=== PATIENT | female | born 1940 | race African-American/Black ===

== ENCOUNTER 2017-03-05 12:09 | Emergency (ER) | payer MEDICARE ==
[~2017-03-05] VITALS: Ht 170.2 cm; Wt 91.0 kg
[~2017-03-05 12:09] MED LIST: CALC1TAB12 PO; ESTR1TAB PO; HYDR25TA5 PO; MULTTAB67 PO
[2017-03-05 12:10] VITALS: BP 134/68; PULSE 103; RESP 17; TEMP 98.7; O2SAT 96
--- NOTE | 2017-03-05 15:37 | PD ---
HPI Chief Complaint: GI Complaint Time Seen by Provider: 15:17 Travel History International Travel<30 days: No Contact w/Intl Traveler<30days: No Traveled to known affect area: No History of Present Illness HPI 76-year-old female presents to the emergency department, sent by her primary care provider Dr. Joseph, with complaint of blood in her stool on and off for the past 2 months. Had a stool sample that was positive for blood that she provided on Wednesday and was called today. Reports upper abdominal pain that has been consistent and unchanged for 10 or more years. Denies fever, vomiting , dysuria, hematuria. Says her stool is soft but denies diarrhea. Denies anticoagulant therapy. Had colonoscopy and endoscopy in June and July 2016 which concluded gastritis and a lipoma in her colon. Says she had a CT scan her abdomen within the last year to year and half. History of appendectomy and hysterectomy. Allergies to aspirin. B[facility] Insulator is [facility] [place]. History of gastritis, lipoma in colon, and hypertension. Symptoms are mild in severity. Has no other medical complaints. No other modifying factors or associated signs and symptoms. PFSH Past Surgical History Hysterectomy: Yes Social History Tobacco Use: No Allergies-Medications (Allergen,Severity, Reaction): Coded Allergies: aspirin (Unverified Allergy, Mild, itching, 03/05/17) Reported Meds & Prescriptions Reported Meds & Active Scripts Active Calcium 500 +D (Calcium Carbonate-Cholecalciferol) 500-400 Mg-Unit Tab 1 Tab PO TID Hydrochlorothiazide 25 Mg Tab 25 Mg PO DAILY Estradiol 1 Mg Tab 1 Mg PO DAILY Reported Multiple Vitamin 1 Tab 1 Tab PO DAILY Review of Systems Except as stated in HPI: all other systems reviewed are Neg Physical Exam Narrative GENERAL: Well-nourished, well-developed female patient, in no acute distress; afebrile, nontoxic-appearing SKIN: Warm and dry. HEAD: Atraumatic. Normocephalic. EYES: Pupils equal and round. No scleral icterus. No injection or drainage. ENT: Mucosa pink and moist. Airway patent. NECK: Trachea midline. CARDIOVASCULAR: Regular rate and rhythm. No murmur appreciated. RESPIRATORY: No accessory muscle use. Clear to auscultation. Breath sounds equal bilaterally. GASTROINTESTINAL: Abdomen soft, tenderness on palpation to right upper and left upper quadrant is consistent with her abdominal pain for over 10 years, nondistended. Hepatic and splenic margins not palpable. Bowel sounds are active 4 quadrants. Nonrigid. No rebound tenderness. No guarding. BACK: No CVA tenderness. MUSCULOSKELETAL: No obvious deformities. No clubbing. No cyanosis. No edema. NEUROLOGICAL: Awake and alert. Oriented 3. No obvious cranial nerve deficits. Motor grossly within normal limits. Normal speech. PSYCHIATRIC: Appropriate mood and affect; insight and judgment normal. Data Data Last Documented VS Vital Signs Date Time Temp Pulse Resp B/P (MAP) Pulse Ox O2 Delivery O2 Flow Rate FiO2 03/05/17 15:49 99 Room Air 03/05/17 15:49 98.7 77 12 138/84 (102) Orders Orders Complete Blood Count With Diff (03/05/17 13:20) Comprehensive Metabolic Panel (03/05/17 13:20) Prothrombin Time / Inr (Pt) (03/05/17 13:20) Act Partial Throm Time (Ptt) (03/05/17 13:20) Ecg Monitoring (03/05/17 13:20) Oximetry (03/05/17 13:20) Oxygen Administration (03/05/17 13:20) Iv Access Insert/Monitor (03/05/17 13:20) Type And Screen (03/05/17 13:20) Lipase (03/05/17 15:40) Urinalysis - C+S If Indicated (03/05/17 15:40) Labs Laboratory Tests Test 03/05/17 15:50 03/05/17 17:10 White Blood Count 7.1 TH/MM3 Red Blood Count 4.55 MIL/MM3 Hemoglobin 13.5 GM/DL Hematocrit 39.4 % Mean Corpuscular Volume 86.6 FL Mean Corpuscular Hemoglobin 29.7 PG Mean Corpuscular Hemoglobin Concent 34.3 % Red Cell Distribution Width 12.8 % Platelet Count 313 TH/MM3 Mean Platelet Volume 7.5 FL Neutrophils (%) (Auto) 47.2 % Lymphocytes (%) (Auto) 42.0 % Monocytes (%) (Auto) 9.3 % Eosinophils (%) (Auto) 1.3 % Basophils (%) (Auto) 0.2 % Neutrophils # (Auto) 3.4 TH/MM3 Lymphocytes # (Auto) 3.0 TH/MM3 Monocytes # (Auto) 0.7 TH/MM3 Eosinophils # (Auto) 0.1 TH/MM3 Basophils # (Auto) 0.0 TH/MM3 CBC Comment DIFF FINAL Differential Comment Prothrombin Time 10.0 SEC Prothromb Time International Ratio 0.9 RATIO Activated Partial Thromboplast Time 26.4 SEC Blood Urea Nitrogen 18 MG/DL Creatinine 1.02 MG/DL Random Glucose 96 MG/DL Total Protein 7.6 GM/DL Albumin 3.9 GM/DL Calcium Level 9.2 MG/DL Alkaline Phosphatase 84 U/L Aspartate Amino Transf (AST/SGOT) 22 U/L Alanine Aminotransferase (ALT/SGPT) 34 U/L Total Bilirubin 0.3 MG/DL Sodium Level 136 MEQ/L Potassium Level 3.5 MEQ/L Chloride Level 101 MEQ/L Carbon Dioxide Level 31.8 MEQ/L Anion Gap 3 MEQ/L Estimat Glomerular Filtration Rate 64 ML/MIN Lipase 143 U/L Urine Color LIGHT-YELLOW Urine Turbidity CLEAR Urine pH 6.0 Urine Specific [place] 1.010 Urine Protein NEG mg/dL Urine Glucose (UA) NEG mg/dL Urine Ketones NEG mg/dL Urine Occult Blood NEG Urine Nitrite NEG Urine Bilirubin NEG Urine Urobilinogen LESS THAN 2.0 MG/DL Urine Leukocyte Esterase NEG Urine RBC 1 /hpf Urine WBC 1 /hpf Microscopic Urinalysis Comment CULT NOT INDICATED MDM Medical Decision Making Medical Screen Exam Complete: Yes Emergency Medical Condition: Yes Medical Record Reviewed: Yes Differential Diagnosis Lower GI bleed, hemorrhoids, anal fissure Narrative Course 76-year-old female sent by Dr. Joseph for positive result of blood in her stool, stable to was provided on Wednesday. Patient has upper abdominal tenderness that she reports been unchanged for over 10 years. 1707: CBC, CMP, lipase, coags unremarkable. Blood type O+. 1740: Urinalysis with no signs of infection. I discussed patient's findings with Dr. Killian and he agrees patient is stable for discharge. Instructed patient to follow up with gastroenterology. Instructed patient to follow up with primary care provider. Patient verbalizes understanding and agreement with treatment plan. Patient is medically cleared and stable for discharge. Discussed reasons to return to the emergency department. Patient agrees with treatment plan. The patients vital signs are stable and the patient is stable for outpatient follow-up and treatment. Patient discharged home, stable and in no acute distress. Diagnosis Primary Impression: GI bleed Qualified Codes: K92.2 - Gastrointestinal hemorrhage, unspecified Referrals: B[employer]ulator Primary Care Physician Patient Instructions: Gastrointestinal Bleeding (ED), General Instructions Additional Instructions: Follow-up primary care provider Follow-up with merchandise team manager Return to emergency department immediately for worsening of symptoms Med/Other Pt SpecificInfo: No Meds Exist/No RX given Disposition: 01 DISCHARGE HOME Condition: Stable Natalia Moore [facility] Mar 05, 2017 15:37
[2017-03-05 15:49] VITALS: BP 138/84; PULSE 77; RESP 12; TEMP 98.7; O2SAT 98
[2017-03-05 16:27] LABS: AUTOMATED NEUTROPHIL # 3.4 TH/MM3 (1.8-7.7); BASOPHIL % 0.2 % (0.0-2.0); EOSINOPHIL # 0.1 TH/MM3 (0-0.4); EOSINOPHIL % 1.3 % (0.0-4.0); HEMATOCRIT 39.4 % (35.0-46.0); HEMO FLAGS DIFF FINAL; MEAN CELL VOLUME 86.6 FL (80.0-100.0); MEAN CORPUSCULAR HEMOGLOBIN 29.7 PG (27.0-34.0); MEAN CORPUSCULAR HGB CONC 34.3 % (32.0-36.0); MONO % 9.3 % (0.0-8.0); NEUT % 47.2 % (16.0-70.0); PLATELET COUNT 313 TH/MM3 (150-450); RED BLOOD COUNT 4.55 MIL/MM3 (4.00-5.30); RED CELL DISTRIBUTION WIDTH 12.8 % (11.6-17.2); WHITE BLOOD COUNT 7.1 TH/MM3 (4.0-11.0)
[2017-03-05 16:37] LABS: APTT (PATIENT) 26.4 SEC (24.3-30.1); INTERNATIONAL NORMALIZED RATIO 0.9 RATIO
[2017-03-05 16:48] LABS: ALT (GPT) 34 U/L (10-53); ANION GAP 3 MEQ/L (5-15); AST (GOT) 22 U/L (15-37); BICARBONATE 31.8 MEQ/L (21.0-32.0); BLOOD UREA NITROGEN 18 MG/DL (7-18); CHLORIDE 101 MEQ/L (98-107); GLOMERULAR FILTRATION RATE 64 ML/MIN (>89); POTASSIUM 3.5 MEQ/L (3.5-5.1); SODIUM (NA) 136 MEQ/L (136-145)
[2017-03-05 16:50] LABS: ALKALINE PHOSPHATASE 84 U/L (45-117); TOTAL BILIRUBIN ADULT 0.3 MG/DL (0.2-1.0)
[2017-03-05 17:31] LABS: BLOOD, URINE NEG (NEG); GLUCOSE,URINE NEG (NEG); KETONE, URINE NEG (NEG); NITRITE,URINE NEG (NEG); URINE COLOR LIGHT-YELLOW (YELLW/STRAW)
[2017-03-05 17:33] LABS: COMMENT (UR) CULT NOT INDICATED; CULTURE IF INDICATED CULT NOT INDICATED
== END 2017-03-05 18:09 | disposition home or self-care (01) ==
LOC: NEPD 12:09
DX: K92.2 Gastrointestinal hemorrhage, unspecified (principal); Z79.899 Other long term (current) drug therapy; Z88.6 Allergy status to analgesic agent
CPT/HCPCS: 80053; 81001; 83690; 85025; 85610; 85730; 86850; 86900; 86901; 99283